=== PATIENT | male | born 1985 | race Caucasian/White ===

== ENCOUNTER 2019-02-03 00:39 | Emergency (ER) | payer BC ==
[~2019-02-03] VITALS: Ht 182.9 cm; Wt 72.6 kg
[2019-02-03] MEDS ORDERED: LIDOCAINE HCL 2% 20 ML VIAL TP ONE (01:30)
[2019-02-03] MEDS ORDERED: BACITRACIN OPHT OINT 3.5 GM TUBE ONE (01:30)
[2019-02-03] MEDS ORDERED: NEOMY/BACITRA/POLYMYXIN B OINT UD PACKET TP ONE (01:30)
[2019-02-03 01:36] VITALS: BP 132/78
== END 2019-02-03 01:37 | disposition home or self-care (01) ==
LOC: EDBD 00:44 → ER 00:44
DX: S51.012A Laceration without foreign body of left elbow, initial encounter (principal); Z91.012 Allergy to eggs; W18.39XA Other fall on same level, initial encounter; Y93.22 Activity, ice hockey; Y92.89 Other specified places as the place of occurrence of the external cause; Y99.8 Other external cause status
CPT/HCPCS: A4663; J3590